=== PATIENT | male | born 1960 | race African-American/Black ===

== ENCOUNTER 2022-02-07 09:36 | Inpatient (IN) | payer MEDICARE, OTHER ==
[~2022-02-07] VITALS: Ht 182.9 cm; Wt 70.3 kg
[2022-02-07] MEDS ORDERED: SODIUM CHLORIDE 0.9% 1,000 ML IVB ONE (10:15)
[2022-02-07] MEDS ORDERED: ONDANSETRON HCL 4 MG/2 ML VIAL IV ONE (10:15)
[2022-02-07] MEDS ORDERED: SODIUM CHLORIDE 0.9% 1,000 ML IV ONE (10:15)
[2022-02-07] MEDS ORDERED: MORPHINE SULFATE 4 MG/ML SYR/VIAL IV ONE (10:15)
[2022-02-07] MEDS ORDERED: LORazepam 2MG/ML-1ML VIAL IV ONE (11:00)
[2022-02-07 11:03] LABS: Basophils # (auto) 0.2 10 ^3/uL (0-0.2); Basophils % (auto) 2.4 % (0.0-2.0); Eosinophils # (auto) 0.3 10 ^3/uL (0-0.8); Eosinophils % (auto) 4.5 % (0.0-7.0); Hematocrit 43.3 % (41.0-53.0); Hemoglobin 14.6 g/dL (13.5-17.5); Lymphocytes # (auto) 2.2 10 ^3/uL (0.4-5.4); Lymphocytes % (auto) 33.8 % (10.0-50.0); Mean Corpuscular Hemoglobin 30.6 pg (28.0-32.0); Mean Corpuscular Hgb Conc. 33.8 g/dL (32.0-36.0); Mean Corpuscular Volume 90.7 fL (80.0-100.0); Monocytes # (auto) 0.4 10 ^3/uL (0-1.3); Monocytes % (auto) 6.6 % (0.0-12.0); Neutrophils # (auto) 3.5 10 ^3/uL (1.6-8.6); Neutrophils % (auto) 52.7 % (37.0-80.0); Red Blood Cells 4.78 10^6/uL (4.5-5.90); Red Cell Distribution Width 12.2 % (11.8-14.3); White Blood Cell 6.6 10^3/uL (4.4-10.8)
[2022-02-07 11:19] LABS: Albumin 4.4 g/dL (3.4-5.0); Calcium 9.7 mg/dL (8.5-10.1); INR 1.03 (0.9-1.15); Partial Thromboplastin Time 25.1 sec (24.6-33.4); Potassium 3.8 mmol/L (3.5-5.1)
[2022-02-07 11:26] LABS: BUN/Creatinine Ratio 13.3; Total Protein 7.7 g/dL (6.4-8.2)
[2022-02-07] MEDS ORDERED: PROCHLORPERAZINE EDISYLATE 5 MG/ML 2ML VIAL IV ONE (13:00)
[2022-02-07] MEDS ORDERED: NITROGLYCERIN 0.4 MG SL TAB SL PRN (15:45)
[2022-02-07] MEDS ORDERED: MORPHINE SULFATE INJ 2 MG/ml SYRG IV PRN (15:45)
[2022-02-07] MEDS ORDERED: ONDANSETRON HCL 4 MG/2 ML VIAL IV PRN (15:45)
[2022-02-07] MEDS ORDERED: metroNIDAZOLE 500MG/100ML 100 ML IV ONE (16:00)
[2022-02-07 16:05] LABS: Urine WBC None Seen /hpf (0 - 3)
[2022-02-07 16:28] LABS: Amylase 114 U/L (25-115); Lipase 154 U/L (73-393)
[2022-02-07 16:37] LABS: Alcohol, Urine < 3.0 mg/dL (0-10); Amphetamine Screen, Urine NEGATIVE (NEGATIVE); Barbiturate Scree,Urine NEGATIVE (NEGATIVE); Benzodiazephine Screen, Urine NEGATIVE (NEGATIVE); Cannabinoid Screen, Urine POSITIVE (NEGATIVE); Cocaine Screen, Urine NEGATIVE (NEGATIVE); Opiate Scree,Urine NEGATIVE (NEGATIVE); Phencyclidine Screen, Urine NEGATIVE (NEGATIVE)
[2022-02-07 16:37] LABS: Cholesterol 159 mg/dL (< 200)
[2022-02-07 16:39] LABS: HDL Cholesterol 63 mg/dL (40-59); LDL Cholesterol 97 mg/dL (< 100); Triglycerides 45 mg/dL (< 150)
[2022-02-07 16:51] LABS: Urine Bacteria NONE SEEN /hpf (None Seen); Urine Blood Negative /uL (Negative); Urine Specific Gravity 1.014 (1.001-1.035)
[2022-02-07] MEDS ORDERED: HCTZ 25 MG TAB PO ONE (17:00)
[2022-02-07] MEDS ORDERED: hydrALAZINE HCL 20 MG/ML VL IV PRN (17:00)
[2022-02-07] MEDS: SODIUM CHLORIDE 0.9% 1,000 ML IV SCH (17:03)
[2022-02-07] MEDS: metroNIDAZOLE 500MG/100ML 100 ML IV SCH (17:09)
[2022-02-07 21:00] VITALS: BP 163/91
[2022-02-07 21:02] VITALS: BP 163/91
[2022-02-07 21:03] VITALS: BP 163/91
[2022-02-07] MEDS ORDERED: PROMETHAZINE HCL 25 MG/ML 1ML IV ONE (21:30)
[2022-02-07] MEDS ORDERED: KETOROLAC TROMETH 30 MG/ML 1ML VIAL IV ONE (21:30)
[2022-02-07 22:00] VITALS: BP 163/91
[2022-02-07 22:04] VITALS: BP 163/91
[2022-02-07] MEDS ORDERED: DICY20TA (22:17)
[2022-02-08] MEDS: metroNIDAZOLE 500MG/100ML 100 ML IV SCH ×3 (00:53→17:00)
[2022-02-08 05:00] VITALS: BP 127/64
[2022-02-08 05:32] LABS: Basophils # (auto) 0.1 10 ^3/uL (0-0.2); Basophils % (auto) 0.7 % (0.0-2.0); Eosinophils # (auto) 0 10 ^3/uL (0-0.8); Eosinophils % (auto) 0.1 % (0.0-7.0); Hematocrit 41.8 % (41.0-53.0); Hemoglobin 14.2 g/dL (13.5-17.5); Lymphocytes # (auto) 2.3 10 ^3/uL (0.4-5.4); Lymphocytes % (auto) 15.7 % (10.0-50.0); Mean Corpuscular Hemoglobin 30.6 pg (28.0-32.0); Mean Corpuscular Hgb Conc. 33.9 g/dL (32.0-36.0); Mean Corpuscular Volume 90.4 fL (80.0-100.0); Monocytes # (auto) 1.1 10 ^3/uL (0-1.3); Monocytes % (auto) 7.7 % (0.0-12.0); Neutrophils # (auto) 11.1 10 ^3/uL (1.6-8.6); Neutrophils % (auto) 75.8 % (37.0-80.0); Red Blood Cells 4.62 10^6/uL (4.5-5.90); Red Cell Distribution Width 12.3 % (11.8-14.3); White Blood Cell 14.6 10^3/uL (4.4-10.8)
[2022-02-08 05:53] LABS: Albumin 3.9 g/dL (3.4-5.0); Potassium 3.6 mmol/L (3.5-5.1)
[2022-02-08 05:58] LABS: BUN/Creatinine Ratio 17.4; Bilirubin, Total 1.4 mg/dL (0.2-1.0); Total Protein 7.5 g/dL (6.4-8.2)
[2022-02-08] MEDS: SODIUM CHLORIDE 0.9% 1,000 ML IV SCH ×2 (06:13→18:40)
[2022-02-08 09:00] VITALS: BP 102/63
[2022-02-08] MEDS ORDERED: HCTZ 25 MG TAB PO SCH (10:00)
[2022-02-08] MEDS ORDERED: ENOXAPARIN SOD 40 MG/0.4 ML SYRINGE SC SCH (10:00)
[2022-02-08 13:00] VITALS: BP 134/77
[2022-02-08] MEDS ORDERED: LACT10SO70 PO (13:55)
[2022-02-08] MEDS ORDERED: ACETAMINOPHEN 325 MG TAB PO ONE (14:00)
[2022-02-08 16:52] VITALS: BP 156/96
[2022-02-08 18:44] VITALS: BP 100/63
== END 2022-02-08 19:35 | disposition home or self-care (01) | DRG 390 ==
LOC: ER 09:36 → OVERFLOW 15:47 → WEST WING 21:05
PROVIDERS: ADMIT Registered Nurse; ATTEND Internal Medicine
DX: K56.41 Fecal impaction (principal); E78.5 Hyperlipidemia, unspecified; R00.0 Tachycardia, unspecified; J44.9 Chronic obstructive pulmonary disease, unspecified; I10 Essential (primary) hypertension; Z20.822 Contact with and (suspected) exposure to COVID-19
CPT/HCPCS: 36415; 74176; 80053; 80061; 80307; 81001; 82150; 83036; 83690; 84443; 84484; 85025; 85610; 85730; 87045; 87426; 87427; 96361; 96365; 96375; 96376; G0378; J1885; J2405; J3490

== ENCOUNTER 2022-05-14 03:29 | Inpatient (IN) | payer MEDICARE, OTHER ==
[~2022-05-14] VITALS: Ht 190.5 cm; Wt 66.6 kg
[~2022-05-14 03:29] MED LIST: DICY20TA; LACT10SO70 PO
[2022-05-14] MEDS ORDERED: ONDANSETRON HCL 4 MG/2 ML VIAL IV ONE (04:45)
[2022-05-14] MEDS ORDERED: SODIUM CHLORIDE 0.9% 1,000 ML IV ONE (04:45)
[2022-05-14] MEDS ORDERED: MORPHINE SULFATE 4 MG/ML SYR/VIAL IV ONE (04:45)
[2022-05-14 05:44] LABS: Basophils # (auto) 0.1 10 ^3/uL (0-0.2); Eosinophils # (auto) 0.4 10 ^3/uL (0-0.8); Eosinophils % (auto) 3.3 % (0.0-7.0); Hematocrit 43.9 % (41.0-53.0); Hemoglobin 14.1 g/dL (13.5-17.5); Lymphocytes # (auto) 2.5 10 ^3/uL (0.4-5.4); Lymphocytes % (auto) 23.1 % (10.0-50.0); Mean Corpuscular Hemoglobin 30.8 pg (28.0-32.0); Mean Corpuscular Hgb Conc. 32.2 g/dL (32.0-36.0); Mean Corpuscular Volume 95.6 fL (80.0-100.0); Monocytes # (auto) 0.8 10 ^3/uL (0-1.3); Monocytes % (auto) 7.2 % (0.0-12.0); Neutrophils # (auto) 7.1 10 ^3/uL (1.6-8.6); Neutrophils % (auto) 65.4 % (37.0-80.0); Nucleated Red Blood Cells % 0.1 %; Red Blood Cells 4.59 10^6/uL (4.5-5.90); Red Cell Distribution Width 12.6 % (11.8-14.3); White Blood Cell 10.9 10^3/uL (4.4-10.8)
[2022-05-14] MEDS ORDERED: METOCLOPRAMIDE HCL 5MG/ml INJ 2ml VIAL IV ONE (06:00)
[2022-05-14 06:02] LABS: Calcium 9.1 mg/dL (8.5-10.1); Potassium 3.8 mmol/L (3.5-5.1)
[2022-05-14 06:05] LABS: Bilirubin, Total 0.6 mg/dL (0.2-1.0); Total Protein 7.4 g/dL (6.4-8.2)
[2022-05-14] MEDS ORDERED: KETOROLAC TROMETH 30 MG/ML 1ML VIAL IV ONE (11:30)
[2022-05-14] MEDS ORDERED: DOCUSATE SOD 100 MG CAP PO PRN (14:00)
[2022-05-14] MEDS ORDERED: ACETAMINOPHEN 325 MG TAB PO PRN (14:00)
[2022-05-14] MEDS: SODIUM CHLOR 0.9% PF (SALINE LOCK) 10ML VIAL/SYR IV SCH ×2 (14:14→22:10)
[2022-05-14] MEDS ORDERED: HYDROmorphone HCL 2 MG/ML VL/or syr IV PRN (14:30)
[2022-05-14] MEDS: LACTATED RINGER'S 1,000 ML IV SCH ×2 (14:55→21:30)
[2022-05-14 15:09] LABS: CRP High Sensitivity 0.06 mg/dL (< 0.3)
[2022-05-14 15:32] LABS: Lactic Acid w/Reflex 2.4 mmol/L (0.4-2.0)
[2022-05-14 18:07] LABS: Alcohol, Urine < 3.0 mg/dL (0-10); Amphetamine Screen, Urine NEGATIVE (NEGATIVE); Barbiturate Scree,Urine NEGATIVE (NEGATIVE); Benzodiazephine Screen, Urine NEGATIVE (NEGATIVE); Cannabinoid Screen, Urine POSITIVE (NEGATIVE); Cocaine Screen, Urine NEGATIVE (NEGATIVE)
[2022-05-14 18:14] LABS: Opiate Scree,Urine POSITIVE (NEGATIVE); Phencyclidine Screen, Urine NEGATIVE (NEGATIVE)
[2022-05-14 20:59] LABS: Urine Bacteria NONE SEEN /hpf (None Seen); Urine Blood Negative /uL (Negative); Urine Mucus FEW (None Seen); Urine Specific Gravity 1.025 (1.001-1.035); Urine WBC 5 /hpf (0 - 3)
[2022-05-14 21:45] VITALS: BP 146/72
[2022-05-14] MEDS ORDERED: [UNRECOGNIZED DRUG - CODE] PO (22:01)
[2022-05-14] MEDS: ONDANSETRON HCL 4 MG/2 ML VIAL IV PRN (23:46)
[2022-05-15] MEDS: HYDROcodone-ACET 5/325MG TAB PO PRN ×4 (03:04→19:17)
[2022-05-15] MEDS: LACTATED RINGER'S 1,000 ML IV SCH ×3 (03:50→22:26)
[2022-05-15 05:00] VITALS: BP 123/65
[2022-05-15] MEDS: SODIUM CHLOR 0.9% PF (SALINE LOCK) 10ML VIAL/SYR IV SCH ×3 (06:00→22:22)
[2022-05-15] MEDS: ONDANSETRON HCL 4 MG/2 ML VIAL IV PRN ×4 (08:40→23:50)
[2022-05-15 09:00] VITALS: BP 151/90
[2022-05-15 13:00] VITALS: BP 140/87
[2022-05-15 17:00] VITALS: BP 136/89
[2022-05-15 20:00] VITALS: BP 153/79
[2022-05-15] MEDS ORDERED: LORazepam 2MG/ML-1ML VIAL IV PRN (21:00)
[2022-05-15 22:00] VITALS: BP 153/79
[2022-05-16 05:00] VITALS: BP 137/77
[2022-05-16] MEDS: SODIUM CHLOR 0.9% PF (SALINE LOCK) 10ML VIAL/SYR IV SCH ×3 (05:42→22:45)
[2022-05-16 06:42] LABS: Potassium 3.4 mmol/L (3.5-5.1)
[2022-05-16 06:49] LABS: Albumin 4.2 g/dL (3.4-5.0); BUN/Creatinine Ratio 25.3; Bilirubin, Total 1.3 mg/dL (0.2-1.0); Calcium 9.1 mg/dL (8.5-10.1); Magnesium 2.1 mg/dL (1.6-2.6); Total Protein 7.3 g/dL (6.4-8.2)
[2022-05-16 06:57] LABS: Basophils # (auto) 0.1 10 ^3/uL (0-0.2); Basophils % (auto) 0.4 % (0.0-2.0); Eosinophils # (auto) 0 10 ^3/uL (0-0.8); Eosinophils % (auto) 0.1 % (0.0-7.0); Hematocrit 41.2 % (41.0-53.0); Hemoglobin 13.7 g/dL (13.5-17.5); Lymphocytes # (auto) 2.1 10 ^3/uL (0.4-5.4); Lymphocytes % (auto) 16.4 % (10.0-50.0); Mean Corpuscular Hemoglobin 30.7 pg (28.0-32.0); Mean Corpuscular Hgb Conc. 33.1 g/dL (32.0-36.0); Mean Corpuscular Volume 92.6 fL (80.0-100.0); Monocytes # (auto) 0.9 10 ^3/uL (0-1.3); Monocytes % (auto) 6.8 % (0.0-12.0); Neutrophils # (auto) 9.9 10 ^3/uL (1.6-8.6); Neutrophils % (auto) 76.3 % (37.0-80.0); Red Blood Cells 4.45 10^6/uL (4.5-5.90); Red Cell Distribution Width 12.4 % (11.8-14.3); White Blood Cell 12.9 10^3/uL (4.4-10.8)
[2022-05-16 09:00] VITALS: BP 132/73
[2022-05-16] MEDS ORDERED: POTASSIUM CHL 20 Meq TABLET PO ONE (09:45)
[2022-05-16 13:00] VITALS: BP 137/90
[2022-05-16] MEDS: HYDROcodone-ACET 5/325MG TAB PO PRN ×2 (14:00→22:50)
[2022-05-16 17:00] VITALS: BP 133/84
[2022-05-16] MEDS: LACTATED RINGER'S 1,000 ML IV SCH (17:49)
[2022-05-16 22:00] VITALS: BP 136/89
[2022-05-17] MEDS: LACTATED RINGER'S 1,000 ML IV SCH (01:05)
[2022-05-17 05:00] VITALS: BP 135/82
[2022-05-17] MEDS: SODIUM CHLOR 0.9% PF (SALINE LOCK) 10ML VIAL/SYR IV SCH (05:27)
[2022-05-17 06:59] LABS: Basophils # (auto) 0.1 10 ^3/uL (0-0.2); Basophils % (auto) 1.1 % (0.0-2.0); Eosinophils # (auto) 0.3 10 ^3/uL (0-0.8); Eosinophils % (auto) 3.1 % (0.0-7.0); Hematocrit 43.9 % (41.0-53.0); Hemoglobin 14.9 g/dL (13.5-17.5); Lymphocytes # (auto) 3.1 10 ^3/uL (0.4-5.4); Lymphocytes % (auto) 31.1 % (10.0-50.0); Mean Corpuscular Hemoglobin 31.1 pg (28.0-32.0); Mean Corpuscular Hgb Conc. 33.9 g/dL (32.0-36.0); Mean Corpuscular Volume 91.8 fL (80.0-100.0); Monocytes # (auto) 0.8 10 ^3/uL (0-1.3); Monocytes % (auto) 8.6 % (0.0-12.0); Neutrophils # (auto) 5.5 10 ^3/uL (1.6-8.6); Neutrophils % (auto) 56.1 % (37.0-80.0); Nucleated Red Blood Cells % 0.3 %; Red Blood Cells 4.78 10^6/uL (4.5-5.90); Red Cell Distribution Width 12.2 % (11.8-14.3); White Blood Cell 9.9 10^3/uL (4.4-10.8)
[2022-05-17 07:17] LABS: Albumin 4.2 g/dL (3.4-5.0); Calcium 9.3 mg/dL (8.5-10.1); Potassium 4.1 mmol/L (3.5-5.1)
[2022-05-17 07:20] LABS: BUN/Creatinine Ratio 12.9; Bilirubin, Total 1.8 mg/dL (0.2-1.0)
[2022-05-17 08:30] VITALS: BP 113/82
[2022-05-17] MEDS ORDERED: PANC12002 PO (09:20)
[2022-05-17 11:09] VITALS: BP 113/82
== END 2022-05-17 12:34 | disposition home or self-care (01) | DRG 439 ==
LOC: ER 03:29 → OVERFLOW 13:49 → WEST WING 21:14
PROVIDERS: ADMIT Internal Medicine; ATTEND Internal Medicine Geriatric Medicine
DX: K85.90 Acute pancreatitis without necrosis or infection, unspecified (principal); F19.239 Other psychoactive substance dependence with withdrawal, unspecified; F10.20 Alcohol dependence, uncomplicated; G89.29 Other chronic pain; K86.1 Other chronic pancreatitis; Z20.822 Contact with and (suspected) exposure to COVID-19
CPT/HCPCS: 36415; 74176; 76705; 80053; 80307; 81001; 82150; 82962; 83605; 83690; 83735; 85025; 85652; 86141; 87426; 96361; 96374; 96375; G0378; J1885; J2405

== ENCOUNTER 2022-06-22 10:31 | Inpatient (IN) | payer MEDICARE, OTHER ==
[~2022-06-22] VITALS: Ht 182.9 cm; Wt 74.6 kg
[~2022-06-22 10:31] MED LIST changes: -DICY20TA; -LACT10SO70 PO; +PANC12002 PO; +[UNRECOGNIZED DRUG - CODE] PO
[2022-06-22] MEDS ORDERED: PROCHLORPERAZINE EDISYLATE 5 MG/ML 2ML VIAL IV ONE (10:45)
[2022-06-22] MEDS ORDERED: MORPHINE SULFATE 4 MG/ML SYR/VIAL IV ONE (10:45)
[2022-06-22] MEDS ORDERED: SODIUM CHLORIDE 0.9% 1,000 ML IVB ONE (10:45)
[2022-06-22] MEDS ORDERED: PANTOPRAZOLE 40 MG/10 ML VIAL INJ IV ONE (10:45)
[2022-06-22 11:09] LABS: Basophils # (auto) 0.2 10 ^3/uL (0-0.2); Basophils % (auto) 1.4 % (0.0-2.0); Eosinophils # (auto) 0.5 10 ^3/uL (0-0.8); Eosinophils % (auto) 4.5 % (0.0-7.0); Hematocrit 41.4 % (41.0-53.0); Lymphocytes # (auto) 3.6 10 ^3/uL (0.4-5.4); Lymphocytes % (auto) 33.3 % (10.0-50.0); Mean Corpuscular Hemoglobin 30.9 pg (28.0-32.0); Mean Corpuscular Hgb Conc. 33.8 g/dL (32.0-36.0); Mean Corpuscular Volume 91.4 fL (80.0-100.0); Monocytes # (auto) 0.8 10 ^3/uL (0-1.3); Neutrophils # (auto) 5.9 10 ^3/uL (1.6-8.6); Neutrophils % (auto) 53.8 % (37.0-80.0); Nucleated Red Blood Cells % 0.1 %; Red Blood Cells 4.53 10^6/uL (4.5-5.90); Red Cell Distribution Width 12.5 % (11.8-14.3); White Blood Cell 10.9 10^3/uL (4.4-10.8)
[2022-06-22 11:49] LABS: Urine Bacteria NONE SEEN /hpf (None Seen); Urine Blood Negative /uL (Negative); Urine Specific Gravity 1.008 (1.001-1.035); Urine WBC 63 /hpf (0 - 3)
[2022-06-22 11:50] LABS: Calcium 9.8 mg/dL (8.5-10.1); Chloride 102 mmol/L (98-107); Magnesium 1.9 mg/dL (1.6-2.6); Potassium 3.6 mmol/L (3.5-5.1); Sodium 136 mmol/L (136-145)
[2022-06-22 11:56] LABS: Alanine Aminotransferase 26 U/L (16-61); Albumin 3.9 g/dL (3.4-5.0); Alkaline Phosphatase 83 U/L (45-117); Anion Gap 8 (5-15); Aspartate Aminotransferase 22 U/L (15-37); BUN/Creatinine Ratio 8.5; Bilirubin, Total 0.5 mg/dL (0.2-1.0); Blood Alcohol < 3.0 mg/dL (0-5); Blood Urea Nitrogen 9 mg/dL (7-18); Carbon Dioxide 26 mmol/L (21-32); GFR African American 91 mL/min; GFR Non-African American 75 mL/min; Glucose 117 mg/dL (74-106); Lipase 133 U/L (73-393); Total Protein 8.4 g/dL (6.4-8.2)
[2022-06-22] MEDS ORDERED: HYDROmorphone HCL 2 MG/ML VL/or syr IV ONE (12:30)
[2022-06-22] MEDS ORDERED: ACETAMINOPHEN 325 MG TAB PO PRN (13:15)
[2022-06-22] MEDS ORDERED: cefTRIAXone 1GM/50ML D5W 50 ML IV ONE (13:45)
[2022-06-22] MEDS: PANCREATIC ENZYMES PO SCH ×2 (14:00→18:00)
[2022-06-22] MEDS: SODIUM CHLORIDE 0.9% 1,000 ML IV SCH (14:23)
[2022-06-22 17:41] VITALS: BP 144/90
[2022-06-22] MEDS: HYDROcodone-ACET 5/325MG TAB PO PRN (21:26)
[2022-06-22 21:54] VITALS: BP 161/103
[2022-06-23] MEDS: SODIUM CHLORIDE 0.9% 1,000 ML IV SCH (01:31)
[2022-06-23 05:00] VITALS: BP 139/90
[2022-06-23 05:45] LABS: Basophils # (auto) 0.1 10 ^3/uL (0-0.2); Basophils % (auto) 0.5 % (0.0-2.0); Eosinophils # (auto) 0 10 ^3/uL (0-0.8); Eosinophils % (auto) 0.2 % (0.0-7.0); Hematocrit 40.4 % (41.0-53.0); Hemoglobin 13.6 g/dL (13.5-17.5); Lymphocytes # (auto) 2.5 10 ^3/uL (0.4-5.4); Lymphocytes % (auto) 18.2 % (10.0-50.0); Mean Corpuscular Hemoglobin 30.8 pg (28.0-32.0); Mean Corpuscular Hgb Conc. 33.7 g/dL (32.0-36.0); Mean Corpuscular Volume 91.5 fL (80.0-100.0); Monocytes # (auto) 1.2 10 ^3/uL (0-1.3); Monocytes % (auto) 8.7 % (0.0-12.0); Neutrophils % (auto) 72.4 % (37.0-80.0); Nucleated Red Blood Cells % 0.5 %; Red Blood Cells 4.41 10^6/uL (4.5-5.90); Red Cell Distribution Width 12.5 % (11.8-14.3); White Blood Cell 13.8 10^3/uL (4.4-10.8)
[2022-06-23 05:58] LABS: Potassium 3.5 mmol/L (3.5-5.1)
[2022-06-23 06:04] LABS: Albumin 3.7 g/dL (3.4-5.0); BUN/Creatinine Ratio 16.9; Calcium 9.6 mg/dL (8.5-10.1)
[2022-06-23 06:07] LABS: Bilirubin, Total 0.7 mg/dL (0.2-1.0); Total Protein 7.6 g/dL (6.4-8.2)
[2022-06-23 07:30] VITALS: BP 125/80
[2022-06-23] MEDS: PANCREATIC ENZYMES PO SCH (08:00)
[2022-06-23 08:38] VITALS: BP 125/80
[2022-06-23] MEDS ORDERED: PANTOPRAZOLE 40 MG/10 ML VIAL INJ IV SCH (10:00)
[2022-06-23] MEDS ORDERED: ENOXAPARIN SOD 40 MG/0.4 ML SYRINGE SC SCH (10:00)
[2022-06-23] MEDS: HYDROcodone-ACET 5/325MG TAB PO PRN (10:03)
[2022-06-23 12:16] VITALS: BP 125/80
[2022-06-23 13:00] VITALS: BP 133/80
== END 2022-06-23 15:34 | disposition home or self-care (01) | DRG 690 ==
LOC: ER 10:31 → OVERFLOW 13:16 → WEST WING 17:09
PROVIDERS: ADMIT Nurse Practitioner Family; ATTEND Internal Medicine Pulmonary Disease
DX: N39.0 Urinary tract infection, site not specified (principal); K86.0 Alcohol-induced chronic pancreatitis; Z20.822 Contact with and (suspected) exposure to COVID-19; F10.20 Alcohol dependence, uncomplicated
CPT/HCPCS: 36415; 74176; 80053; 80320; 81001; 83690; 83735; 85025; 87426; C9113; G0378; J0696

== ENCOUNTER 2022-09-18 16:34 | Inpatient (IN) | payer MEDICARE, OTHER ==
[~2022-09-18] VITALS: Ht 185.4 cm; Wt 68.0 kg
[2022-09-18 16:59] LABS: Basophils # (auto) 0.1 10 ^3/uL (0-0.2); Basophils % (auto) 0.8 % (0.0-2.0); Eosinophils # (auto) 0.5 10 ^3/uL (0-0.8); Eosinophils % (auto) 5.3 % (0.0-7.0); Hematocrit 41.4 % (41.0-53.0); Lymphocytes # (auto) 5.3 10 ^3/uL (0.4-5.4); Lymphocytes % (auto) 51.9 % (10.0-50.0); Mean Corpuscular Hemoglobin 30.9 pg (28.0-32.0); Mean Corpuscular Hgb Conc. 33.9 g/dL (32.0-36.0); Mean Corpuscular Volume 91.2 fL (80.0-100.0); Monocytes # (auto) 0.9 10 ^3/uL (0-1.3); Monocytes % (auto) 9.2 % (0.0-12.0); Neutrophils # (auto) 3.4 10 ^3/uL (1.6-8.6); Neutrophils % (auto) 32.8 % (37.0-80.0); Nucleated Red Blood Cells % 0.1 %; Red Blood Cells 4.54 10^6/uL (4.5-5.90); Red Cell Distribution Width 13.2 % (11.8-14.3); White Blood Cell 10.2 10^3/uL (4.4-10.8)
[2022-09-18] MEDS ORDERED: FAMOTIDINE (10MG/ML) 2ML VL IV ONE (17:15)
[2022-09-18] MEDS ORDERED: HALOPERIDOL LACTATE 5 MG/ML INJ VIAL IM ONE (17:15)
[2022-09-18] MEDS ORDERED: SODIUM CHLORIDE 0.9% 1,000 ML IV ONE ×2 (17:15)
[2022-09-18] MEDS ORDERED: LORazepam 2MG/ML-1ML VIAL IV ONE ×2 (17:15)
[2022-09-18] MEDS ORDERED: MORPHINE SULFATE INJ 2 MG/ml SYRG IV ONE (17:15)
[2022-09-18 17:24] VITALS: BP 164/103
[2022-09-18 17:25] LABS: INR 1.02 (0.9-1.15); Partial Thromboplastin Time 24.9 sec (24.6-33.4)
[2022-09-18] MEDS ORDERED: ONDANSETRON HCL 4 MG/2 ML VIAL IV ONE (17:30)
[2022-09-18] MEDS ORDERED: IOHEXOL 300 MG/ML 100ML BOTTLE IJ ONE (17:53)
[2022-09-18 18:29] LABS: Blood Alcohol < 3.0 mg/dL (0-5); Lipase 132 U/L (73-393)
[2022-09-18 18:30] LABS: Albumin 3.9 g/dL (3.4-5.0); BUN/Creatinine Ratio 11.8 (10.0-20.0); Calcium 8.8 mg/dL (8.5-10.1); Potassium 3.5 mmol/L (3.5-5.1)
[2022-09-18 18:32] LABS: Bilirubin, Total 0.5 mg/dL (0.2-1.0); Total Protein 7.3 g/dL (6.4-8.2)
[2022-09-18] MEDS ORDERED: ACETAMINOPHEN 325 MG TAB PO PRN (22:15)
[2022-09-18] MEDS ORDERED: TEMAZEPAM 15 MG CAP PO PRN (22:15)
[2022-09-18] MEDS ORDERED: MORPHINE SULFATE INJ 2 MG/ml SYRG IV PRN (22:15)
[2022-09-18] MEDS ORDERED: ONDANSETRON HCL 4 MG/2 ML VIAL IV PRN (22:15)
[2022-09-18] MEDS ORDERED: HYDROcodone-ACET 5/325MG TAB PO PRN (22:15)
[2022-09-19] MEDS ORDERED: PANCREATIC ENZYMES 4200 UNIT CAP PO SCH (08:00)
[2022-09-19] MEDS ORDERED: PANTOPRAZOLE 40 MG TAB PO SCH (10:00)
== END 2022-09-18 23:34 | disposition left against medical advice (07) | DRG 440 ==
LOC: ER 16:34 → OVERFLOW 22:12
PROVIDERS: ADMIT Nurse Practitioner; ATTEND Nurse Practitioner
DX: K85.90 Acute pancreatitis without necrosis or infection, unspecified (principal); G89.4 Chronic pain syndrome; K86.1 Other chronic pancreatitis; Z53.29 Procedure and treatment not carried out because of patient's decision for other reasons
CPT/HCPCS: 36415; 74177; 76705; 80053; 80320; 80329; 83690; 84484; 85025; 85610; 85730; 96361; 96372; 96374; 96375; G0378; J3490

== ENCOUNTER 2023-04-08 07:38 | Inpatient (IN) | payer MEDICARE, OTHER ==
[~2023-04-08] VITALS: Ht 182.9 cm; Wt 72.3 kg
[2023-04-08] MEDS ORDERED: ONDANSETRON HCL 4 MG/2 ML VIAL IV ONE (08:30)
[2023-04-08] MEDS ORDERED: MORPHINE SULFATE 4 MG/ML SYR/VIAL IV ONE (08:30)
[2023-04-08] MEDS ORDERED: SODIUM CHLORIDE 0.9% 1,000 ML IV ONE ×2 (08:30)
[2023-04-08 08:43] LABS: Basophils # (auto) 0.2 10 ^3/uL (0-0.2); Eosinophils # (auto) 0.5 10 ^3/uL (0-0.8); Eosinophils % (auto) 5.5 % (0.0-7.0); Hematocrit 41.3 % (41.0-53.0); Hemoglobin 13.6 g/dL (13.5-17.5); Lymphocytes % (auto) 32.9 % (10.0-50.0); Mean Corpuscular Hgb Conc. 32.9 g/dL (32.0-36.0); Mean Corpuscular Volume 91.4 fL (80.0-100.0); Monocytes # (auto) 0.7 10 ^3/uL (0-1.3); Monocytes % (auto) 8.1 % (0.0-12.0); Neutrophils # (auto) 4.8 10 ^3/uL (1.6-8.6); Neutrophils % (auto) 51.5 % (37.0-80.0); Red Blood Cells 4.52 10^6/uL (4.5-5.90); Red Cell Distribution Width 12.2 % (11.8-14.3); White Blood Cell 9.2 10^3/uL (4.4-10.8)
[2023-04-08 08:59] LABS: Alanine Aminotransferase 13 U/L (7-40); Albumin 4.3 g/dL (3.2-4.8); Alkaline Phosphatase 94 U/L (46-116); Anion Gap 9 (5-15); Aspartate Aminotransferase 18 U/L (13-40); Blood Urea Nitrogen 13 mg/dL (9-23); Calcium 9.2 mg/dL (8.7-10.4); Carbon Dioxide 22 mmol/L (20-30); Chloride 110 mmol/L (98-107); Glucose 111 mg/dL (74-106); Lipase 35 U/L (12-53); Potassium 4.1 mmol/L (3.5-5.1); Sodium 141 mmol/L (136-145)
[2023-04-08 09:00] LABS: Bilirubin, Total 0.5 mg/dL (0.2-1.0); Total Protein 6.7 g/dL (5.7-8.2)
[2023-04-08 09:17] VITALS: PULSE 94; RESP 15; O2SAT 99
[2023-04-08] MEDS ORDERED: PROMETHAZINE HCL 25 MG/ML 1ML IV ONE (09:30)
[2023-04-08 11:18] LABS: Urine Bacteria FEW /hpf (None Seen); Urine Blood Negative /uL (Negative); Urine Clarity HAZY (Clear); Urine Protein, UAD Negative (Negative); Urine Specific Gravity 1.013 (1.001-1.035); Urine Urobilinogen Normal (Negative); Urine WBC 5 /hpf (0 - 3)
[2023-04-08 11:19] LABS: Urine Color Yellow (Yellow)
[2023-04-08] MEDS ORDERED: LORazepam 2MG/ML-1ML VIAL IV ONE (11:45)
[2023-04-08] MEDS ORDERED: PROCHLORPERAZINE EDISYLATE 5 MG/ML 2ML VIAL IV ONE (11:45)
[2023-04-08] MEDS ORDERED: NITROGLYCERIN 0.4 MG SL TAB SL PRN (13:45)
[2023-04-08] MEDS ORDERED: MORPHINE SULFATE INJ 2 MG/ml SYRG IV PRN (13:45)
[2023-04-08 20:00] VITALS: PULSE 18; RESP 18; O2SAT 96
[2023-04-08] MEDS: traMADol HCL 50 MG TAB PO PRN (20:58)
[2023-04-08] MEDS: LACTULOSE 20Gm/30ML SOLN PO SCH (22:40)
[2023-04-08] MEDS: DOCUSATE SOD 100 MG CAP PO SCH (22:40)
[2023-04-09 08:00] VITALS: BP 118/78; PULSE 81; PULSE 91; RESP 19; RESP 20; TEMP 98.3; O2SAT 97
[2023-04-09] MEDS: LACTULOSE 20Gm/30ML SOLN PO SCH (08:17)
[2023-04-09] MEDS: traMADol HCL 50 MG TAB PO PRN (08:17)
[2023-04-09] MEDS: DOCUSATE SOD 100 MG CAP PO SCH (08:18)
[2023-04-09] MEDS ORDERED: PANTOPRAZOLE 40 MG/10 ML VIAL INJ IV SCH (10:00)
[2023-04-09 10:48] VITALS: BP 118/78; PULSE 91; RESP 20; TEMP 98.3; O2SAT 94
== END 2023-04-09 15:01 | disposition home or self-care (01) | DRG 392 ==
LOC: ER 07:38 → OVERFLOW 13:46 → CENTRAL 21:55
PROVIDERS: ADMIT Nurse Practitioner Acute Care; ATTEND Nurse Practitioner Acute Care
DX: K59.00 Constipation, unspecified (principal); K86.1 Other chronic pancreatitis; G89.4 Chronic pain syndrome
CPT/HCPCS: 36415; 74176; 80053; 81001; 83690; 84484; 85025; 93005; 96361; 96374; 96375; C9113; G0378; J2405

== ENCOUNTER 2023-06-04 07:48 | Emergency (ER) | payer OTHER ==
[~2023-06-04] VITALS: Ht 182.9 cm; Wt 72.7 kg
[2023-06-04 07:59] VITALS: BP 130/94; PULSE 96; RESP 15; O2SAT 98
[2023-06-04 08:13] LABS: Basophils # (auto) 0.1 10 ^3/uL (0-0.2); Basophils % (auto) 1.4 % (0.0-2.0); Eosinophils # (auto) 0.4 10 ^3/uL (0-0.8); Eosinophils % (auto) 5.7 % (0.0-7.0); Hematocrit 42.1 % (41.0-53.0); Hemoglobin 14.1 g/dL (13.5-17.5); Lymphocytes # (auto) 2.8 10 ^3/uL (0.4-5.4); Lymphocytes % (auto) 35.3 % (10.0-50.0); Mean Corpuscular Hemoglobin 29.9 pg (28.0-32.0); Mean Corpuscular Hgb Conc. 33.4 g/dL (32.0-36.0); Mean Corpuscular Volume 89.5 fL (80.0-100.0); Monocytes # (auto) 0.6 10 ^3/uL (0-1.3); Monocytes % (auto) 8.1 % (0.0-12.0); Neutrophils # (auto) 3.9 10 ^3/uL (1.6-8.6); Neutrophils % (auto) 49.5 % (37.0-80.0); Red Cell Distribution Width 12.2 % (11.8-14.3); White Blood Cell 7.9 10^3/uL (4.4-10.8)
[2023-06-04 08:32] LABS: Albumin 4.5 g/dL (3.2-4.8); Alkaline Phosphatase 79 U/L (46-116); Anion Gap 8 (5-15); Aspartate Aminotransferase 16 U/L (13-40); BUN/Creatinine Ratio 9.2 (10.0-20.0); Blood Urea Nitrogen 9 mg/dL (9-23); Calcium 9.7 mg/dL (8.5-10.1); Carbon Dioxide 26 mmol/L (20-30); Chloride 107 mmol/L (98-107); Glucose 108 mg/dL (74-106); Potassium 3.8 mmol/L (3.5-5.1); Sodium 141 mmol/L (136-145)
[2023-06-04 08:33] LABS: Bilirubin, Total 0.5 mg/dL (0.2-1.0); Total Protein 7.3 g/dL (5.7-8.2)
[2023-06-04 08:34] LABS: Alanine Aminotransferase < 9 U/L (7-40)
[2023-06-04 09:21] LABS: Urine Bacteria FEW /hpf (None Seen); Urine Blood Negative /uL (Negative); Urine Clarity Clear (Clear); Urine Protein, UAD Negative (Negative); Urine Specific Gravity 1.008 (1.001-1.035); Urine Urobilinogen Normal (Negative); Urine WBC 24 /hpf (0 - 3); Urine pH 7.5 (5.0-8.0)
[2023-06-04 09:22] LABS: Urine Color Yellow (Yellow)
== END 2023-06-04 11:17 | disposition left against medical advice (07) ==
LOC: ER 07:48
DX: R10.9 Unspecified abdominal pain (principal); R11.0 Nausea; Z53.21 Procedure and treatment not carried out due to patient leaving prior to being seen by health care provider
CPT/HCPCS: 36415; 80053; 81001; 85025